=== PATIENT | female | born 1940 | race Caucasian/White ===

== ENCOUNTER 2021-10-20 10:20 | Inpatient (IN) | payer MEDICARE, OTHER ==
[~2021-10-20] VITALS: Ht 160 cm; Wt 61.2 kg
[2021-10-20] MEDS ORDERED: TRIA15CR3 TP (10:55)
[2021-10-20] MEDS ORDERED: BETAMETH DIP TOP (10:55)
[2021-10-20] MEDS ORDERED: ECON15CR4 TP (10:55)
[2021-10-20] MEDS ORDERED: AZEL23SP NS (10:55)
[2021-10-20] MEDS ORDERED: APRE30TA2 PO (10:55)
[2021-10-20] MEDS ORDERED: VITAMIN D PO (10:55)
[2021-10-20] MEDS ORDERED: VITA400T9 PO (10:55)
[2021-10-20] MEDS ORDERED: DONE10TA44 PO (10:55)
[2021-10-20] MEDS ORDERED: MEMA10TA PO (10:55)
[2021-10-20] MEDS ORDERED: SPIR25TA6 PO (10:55)
[2021-10-20 11:33] LABS: *BILIRUBIN,URIN 1+ (NEGATIVE); *BLOOD, URINE TRACE (NEGATIVE); *CLARITY,URINE CLEAR (CLEAR); *COLOR,URINE YELLOW (YELLOW); *KETONES,URINE NEGATIVE (NEGATIVE); LEUKOCYTE ESTERASE ,URINE NEGATIVE (NEGATIVE); NITRITE, URINE NEGATIVE (NEGATIVE); PH,URINE 5.5 (5.0-8.0); UGLUCOSE NEGATIVE (NEGATIVE)
[2021-10-20 12:46] LABS: HEMATOCRIT 39.6 % (31.2-41.9); MEAN CORPUSCULAR HEMOGLOBIN 27.7 uug (24.7-32.8); MEAN CORPUSCULAR VOLUME 83.4 fL (75.5-95.3); PLATELET COUNT (AUTO) 220 K/uL (179-408)
[2021-10-20 14:41] LABS: BACTERIA,URINE MANY /HPF (NONE SEEN); SQUAMOUS EPITHELIAL CELL,UR FEW /HPF (NONE SEEN); WBC,URINE NONE SEEN /HPF (0-3)
[2021-10-20 14:42] LABS: CALCIUM OXALATE CRYSTALS,UR FEW /HPF (NONE SEEN)
[2021-10-20 16:51] VITALS: BP 145/64
--- NOTE | 2021-10-20 17:13 | NUR ---
PT WAS EVALUATED BY DR MOCTEZUMA. TRANSFERED TO TELEMETRY ROOM #303. REPORT WAS GIVEN TO CLINICAL MOLECULAR GENETICIST.
[2021-10-20] MEDS ORDERED: ONDANSETRON 4 MG/2 ML VIAL IV PRN (18:30)
[2021-10-20] MEDS ORDERED: TEMAZEPAM 15 MG CAPSULE PO PRN (18:30)
[2021-10-20] MEDS ORDERED: ACETAMINOPHEN 325 MG TABLET PO PRN (18:30)
[2021-10-20 20:03] VITALS: BP_SYST 130; BP_SYST 94; BP_DIAS 55; BP_DIAS 64
[2021-10-20] MEDS: MEMANTINE HCL 10 MG TABLET PO SCH (20:23)
[2021-10-20] MEDS: DOCUSATE SODIUM 100 MG CAPSULE PO SCH (20:23)
[2021-10-20] MEDS ORDERED: DOCUSATE SODIUM 250 MG CAPSULE PO SCH (21:00)
[2021-10-21] VITALS: BP 108/57
[2021-10-21 04:03] VITALS: BP 132/61
[2021-10-21 06:45] LABS: HEMATOCRIT 34.3 % (31.2-41.9); MEAN CORPUSCULAR HEMOGLOBIN 28.9 uug (24.7-32.8); MEAN CORPUSCULAR VOLUME 82.3 fL (75.5-95.3); PLATELET COUNT (AUTO) 200 K/uL (179-408)
--- NOTE | 2021-10-21 06:49 | NUR ---
Pt slept throughout the night. Denies pain or SOB. Confused but able to make needs known. IV site intact. Safety maintained. Will endorse to day shift.
[2021-10-21] MEDS: PANTOPRAZOLE SODIUM 40 MG TABLET.DR PO SCH (06:51)
[2021-10-21 07:51] LABS: BILIRUBIN,TOTAL 0.3 mg/dL (0.2-1.0); MAGNESIUM 2.2 mg/dL (1.8-2.4); PHOSPHOROUS 3.1 mg/dL (2.5-4.9); POTASSIUM 3.9 mmol/L (3.5-5.1); TOTAL PROTEIN, SERUM 6.8 g/dL (6.4-8.2)
[2021-10-21 08:24] LABS: CARBON DIOXIDE 20 mmol/L (21-32); CHLORIDE 104 mmol/L (98-107); CREATININE 1.1 mg/dL (0.6-1.3); GLUCOSE 103 mg/dL (74-106); POTASSIUM 3.8 mmol/L (3.5-5.1); UREA NITROGEN, BLOOD 14 mg/dL (7-18)
[2021-10-21 08:25] LABS: ALANINE AMINOTRANSFERASE 14 U/L (14-59); ALKALINE PHOSPHATASE 125 U/L (50-136); ASPARTATE AMINOTRANSFERASE 24 U/L (15-37); BILIRUBIN,DIRECT < 0.1 mg/dL (0.0-0.2); BILIRUBIN,TOTAL 0.3 mg/dL (0.2-1.0); TOTAL PROTEIN, SERUM 7.7 g/dL (6.4-8.2)
[2021-10-21] MEDS: DONEPEZIL 10 MG TABLET PO SCH (08:58)
[2021-10-21] MEDS: MEMANTINE HCL 10 MG TABLET PO SCH ×2 (08:58→16:42)
[2021-10-21 12:00] VITALS: BP 130/60
--- NOTE | 2021-10-21 14:35 | NUR ---
Critical lab value: Lactic Acid 2.1 - Results called in from labor relations worker of [facility]. Will endorse information to Dr. Marsh
[2021-10-21 16:42] VITALS: BP 108/66
--- NOTE | 2021-10-21 18:29 | NUR ---
Patient tolerated care well throughout shift with no signs of distress or discomfort. Patient is alert and oriented 2-3. Patient tends to be forgetful but is able to hold a conversation and make needs known. Patient denies pain throughout shift. IV site patent and intact. Bed left in lowest position with call light within reach. Comfort measures provided. Family updated throughout day. Patient to be seen by Dr. Marsh. Awaiting patient's next plan of care.
[2021-10-21 20:22] VITALS: BP 132/60
[2021-10-21] MEDS: DOCUSATE SODIUM 100 MG CAPSULE PO SCH (21:12)
[2021-10-22 04:15] VITALS: BP 129/68
--- NOTE | 2021-10-22 05:36 | NUR ---
Slept thorughout the night. Able to ambulate with assist. Denies pain or SOB. IV intact. Able to make needs known. Safety maintained throughout the shift. Will endorse to day shift.
[2021-10-22] MEDS: PANTOPRAZOLE SODIUM 40 MG TABLET.DR PO SCH (06:33)
[2021-10-22] MEDS: MEMANTINE HCL 10 MG TABLET PO SCH ×2 (08:23→16:52)
[2021-10-22] MEDS: DONEPEZIL 10 MG TABLET PO SCH (08:23)
[2021-10-22 11:11] VITALS: BP 110/47
[2021-10-22 15:01] VITALS: BP 128/52
--- NOTE | 2021-10-22 16:33 | NUR ---
Patient remain awake alert and oriented 2-3. Patient noted to be forgetful at times but is able to hold a conversation and make needs known. Patient denies pain throughout shift. IV site LAC #20 patent and intact. Safety measures in place. Bed in lowest position with alarm on,call light within reach. Comfort measures provided. Son updated with care.
[2021-10-22 20:06] VITALS: BP 112/46
[2021-10-22] MEDS: DOCUSATE SODIUM 100 MG CAPSULE PO SCH (21:41)
[2021-10-23 04:00] VITALS: BP 135/60
--- NOTE | 2021-10-23 06:43 | NUR ---
PT WAS RESTING IN GURNEY WITH EYES CLOSED THROUGHOUT THE NIGHT, NAD NOTED, VSS, RESPIRATION EQUAL AND UNLABORED THROUGHOUT THE NIGHT. FOLLOWS COMMANDS, CONSOLABLE, AND VOICES CONCERNS. SAFETY AND COMFORT MEASURES ARE IN PLACE. ROOM LIGHTS DIMMED AND CALL LIGHT WITHIN REACH.
[2021-10-23] MEDS: PANTOPRAZOLE SODIUM 40 MG TABLET.DR PO SCH (06:57)
--- NOTE | 2021-10-23 07:25 | NUR ---
PT REPORT GIVEN TO FANI SMITH FOR CONTINUITY OF CARE. ALL CARE ENDORSED, QUESTIONS AND CONCERNS ADDRESSED.
[2021-10-23] MEDS: DONEPEZIL 10 MG TABLET PO SCH (08:25)
[2021-10-23] MEDS: MEMANTINE HCL 10 MG TABLET PO SCH (08:25)
[2021-10-23 11:11] VITALS: BP 129/53
[2021-10-23] MEDS ORDERED: TEMA15CA PO (11:17)
[2021-10-23] MEDS ORDERED: ACET325T53 PO (11:17)
[2021-10-23] MEDS ORDERED: DOCU-141 PO (11:17)
[2021-10-23] MEDS ORDERED: MULT-594 PO (11:17)
[2021-10-23] MEDS ORDERED: FERR325T28 PO (11:21)
[2021-10-23 14:45] VITALS: BP 130/75
--- NOTE | 2021-10-23 16:00 | NUR ---
Patient remain awake alert and oriented 2-3. Patient noted to be forgetful at times but is able to hold a conversation and make needs know. Pt was discharge to [facility] report given to receiving nurse Deanna RN ID band and IV site LAC #20 was removed All belongings given to the [facility] ambulance EMT's they transferred the PT via [place].
== END 2021-10-23 16:00 | DRG 865 ==
LOC: ER 10:20 → TELE3 15:07 → MEDSURG3 10-21 09:34
PROVIDERS: ADMIT Internal Medicine; ATTEND Internal Medicine
DX: B34.9 Viral infection, unspecified (principal); G92.8 Other toxic encephalopathy; D68.59 Other primary thrombophilia; E87.2 Acidosis; R53.1 Weakness; J44.9 Chronic obstructive pulmonary disease, unspecified; Z74.09 Other reduced mobility; F03.90 Unspecified dementia, unspecified severity, without behavioral disturbance, psychotic disturbance, mood disturbance, and anxiety; M19.90 Unspecified osteoarthritis, unspecified site; M81.0 Age-related osteoporosis without current pathological fracture; Z20.822 Contact with and (suspected) exposure to COVID-19; Z87.891 Personal history of nicotine dependence; L40.9 Psoriasis, unspecified; E61.1 Iron deficiency
CPT/HCPCS: 36415; 71045; 83550; 83605; 83735; 84100; 84443; 84484; 85025; 85730; 87040; 87086; 93005; 97161; A4663; G0378; J7040